=== PATIENT | male | born 1955 | race Caucasian/White ===

== ENCOUNTER 2016-08-26 21:41 | Inpatient (IN) | payer MEDICARE ==
[~2016-08-26] VITALS: Ht 167.6 cm; Wt 76.8 kg
[2016-08-27] VITALS (7 sets, daily range): BP systolic 109–136; RESP 18–20; TEMP 97.5–98.1; Ht 167.6 cm; Wt 76.8 kg
[2016-08-27] MEDS ORDERED: METOPROLOL TART 25 MG TAB ONE (00:32)
[2016-08-27] MEDS ORDERED: NITROGLYCERIN SL 0.4 MG TAB SL PRN ×2 (00:50→12:50)
[2016-08-27] MEDS ORDERED: *PINK BRACELET XX ONE (02:15)
[2016-08-27] MEDS: *HOME MEDS KEPT IN PHARMACY XX SCH ×2 (08:00→19:16)
[2016-08-27] MEDS: ASPIRIN EC 81 MG TAB PO SCH (08:33)
[2016-08-27] MEDS ORDERED: SPIRONOLACTONE 25 MG TAB PO SCH (09:00)
[2016-08-27] MEDS ORDERED: Carvedilol 6.25 MG TAB PO SCH ×2 (09:00→21:00)
[2016-08-27] MEDS ORDERED: Carvedilol 6.25 MG TAB PO STA (11:53)
[2016-08-27] MEDS ORDERED: LISINOPRIL 20 MG TAB PO SCH (12:53)
[2016-08-27] MEDS ORDERED: Furosemide 40 MG TAB PO SCH (12:53)
[2016-08-27] MEDS: Atorvastatin 40 MG TAB PO SCH (20:10)
[2016-08-28 07:25] VITALS: BP_SYST 108; RESP 20; TEMP 97.6
[2016-08-28] MEDS: *HOME MEDS KEPT IN PHARMACY XX SCH ×2 (08:00→19:28)
[2016-08-28] MEDS ORDERED: MISSING DOSE XX ONE (08:10)
[2016-08-28] MEDS: ASPIRIN EC 81 MG TAB PO SCH (08:13)
[2016-08-28] MEDS: CARVEDILOL 25 MG TAB PO SCH ×2 (08:14→20:00)
[2016-08-28 11:58] VITALS: BP_SYST 83; RESP 18; TEMP 97.8
[2016-08-28 12:22] VITALS: BP_SYST 100
[2016-08-28 16:28] VITALS: BP_SYST 112; RESP 18; TEMP 97.4
[2016-08-28 19:00] VITALS: BP_SYST 120; RESP 20; TEMP 97.4
[2016-08-28] MEDS: Atorvastatin 40 MG TAB PO SCH (20:00)
[2016-08-28 23:00] VITALS: BP_SYST 103; RESP 18; TEMP 97.5
[2016-08-29 03:50] VITALS: BP_SYST 122; RESP 18; TEMP 97.6
[2016-08-29 07:27] VITALS: BP_SYST 121; RESP 16; TEMP 97.5
[2016-08-29] MEDS: *HOME MEDS KEPT IN PHARMACY XX SCH (08:00)
[2016-08-29] MEDS: CARVEDILOL 25 MG TAB PO SCH (08:42)
[2016-08-29] MEDS: ASPIRIN EC 81 MG TAB PO SCH (08:42)
[2016-08-29 11:46] VITALS: BP_SYST 111; RESP 18; TEMP 97.6
[2016-08-29 11:52] VITALS: BP_SYST 121; RESP 16; TEMP 97.5
== END 2016-08-29 12:29 | disposition home or self-care (01) | DRG 309 ==
LOC: ENRESERVDT → ENRESERVTM → ER 21:41 → EMR 21:42 → 4THE 08-27 01:21 → ENPENDDIS 08-27 18:21 → OBSVTOIN 08-27 18:21
PROVIDERS: ADMIT Internal Medicine Cardiovascular Disease; ATTEND Internal Medicine Cardiovascular Disease
DX: I47.2 Ventricular tachycardia (principal); N17.9 Acute kidney failure, unspecified; I13.0 Hypertensive heart and chronic kidney disease with heart failure and stage 1 through stage 4 chronic kidney disease, or unspecified chronic kidney disease; I50.42 Chronic combined systolic (congestive) and diastolic (congestive) heart failure; N18.9 Chronic kidney disease, unspecified; I25.10 Atherosclerotic heart disease of native coronary artery without angina pectoris; I25.5 Ischemic cardiomyopathy; F17.200 Nicotine dependence, unspecified, uncomplicated; Z82.49 Family history of ischemic heart disease and other diseases of the circulatory system; J44.9 Chronic obstructive pulmonary disease, unspecified; I73.9 Peripheral vascular disease, unspecified
CPT/HCPCS: 36415; 71010; 80048; 80053; 80061; 82553; 82947; 83540; 83735; 83880; 84439; 84443; 84466; 84484; 85025; 93005; 93306